=== PATIENT | male | born 2000 | race Caucasian/White ===

== ENCOUNTER → 2023-10-19 | Outpatient (CLI) | payer OTHER | LOC: M RAD 08:48 | PROVIDERS: ATTEND Student in an Organized Health Care Education/Training Program | DX: R89.8 Other abnormal findings in specimens from other organs, systems and tissues (principal); J84.10 Pulmonary fibrosis, unspecified; R93.89 Abnormal findings on diagnostic imaging of other specified body structures ==

== ENCOUNTER → 2024-02-10 | Outpatient (REF) | LOC: M PLAIMG 09:17 | PROVIDERS: ATTEND Nurse Practitioner Family | DX: M25.561 Pain in right knee (principal); M25.562 Pain in left knee; M25.371 Other instability, right ankle ==

== ENCOUNTER → 2024-12-01 | Outpatient (REF) | LOC: M PLAIMG 08:31 | PROVIDERS: ATTEND Internal Medicine | DX: M54.9 Dorsalgia, unspecified (principal) ==